=== PATIENT | male | born 1965 | race Caucasian/White ===

== ENCOUNTER 2018-07-26 13:44 | Inpatient (IN) ==
[2018-07-26] MEDS ORDERED: Morphine Inj 4 MG/ML Vial IV.PUSH ONE ×2 (14:19→15:16)
[2018-07-26] MEDS ORDERED: Aluminum/Magnesium/Simethacone Susp 30 ML UDC PO ONE (14:21)
[2018-07-26] MEDS ORDERED: Famotidine 20 MG Tablet PO ONE (14:21)
--- NOTE | 2018-07-26 15:01 | ED ---
HPI General Chief Complaint: Chest Pain Stated Complaint: Chest pain/dull right arm pain Time Seen by Provider: 07/26/18 14:02 Source: patient Mode of arrival: EMS Limitations: no limitations History of Present Illness HPI narrative: Patient is a 53-year-old morbidly obese male with history of hypertension presented with complaint of chest pain since yesterday. Described as burning radiating up through the center and to his neck and right upper extremity. Nothing radiating to the left extremity. No epigastric pain. He ate at [employer] last night and today he had cold cuts and some other fried food. He thought it was acid reflux and has taken Prilosec without any relief of his symptoms. MD complaint: chest pain STEMI Alert: No Onset (ago): day(s) (1) Duration: intermittent Onset: during rest Pain location: substernal Severity: severe Severity scale (1-10): 9 Quality: other (Burning) Pain radiation: none Relieving factors: nothing Exacerbating factors: eating Treatments prior to arrival chest pain: none Related Data Home Medications Medication Instructions Recorded Confirmed amlodipine 10 mg PO DAILY 07/26/18 07/26/18 benazepril 40 mg PO DAILY 07/26/18 07/26/18 metoprolol tartrate 25 mg PO BID 07/26/18 07/26/18 omeprazole magnesium [Prilosec OTC] 20 mg PO DAILY 07/26/18 07/26/18 simethicone [Gas-X Extra Strength] 125 mg PO DAILY PRN 07/26/18 07/26/18 Allergies Allergy/AdvReac Type Severity Reaction Status Date / Time Penicillins Allergy Hives Verified 07/26/18 14:14 Review of Systems ROS: all other systems reviewed are negative [facility] Medical History Medical History GERD (gastroesophageal reflux disease) (Acute) HTN (hypertension) (Acute) Vertigo (Acute) Surgical History Surgical History History of facial surgery (Acute) S/P appy (Acute) Family History Family History Other Hypertension Social History Social History Substance History: No History of Abuse Smoking Status: Never smoker How Often Do You Have a Drink Containing Alcohol: 2 to 4 times a month Recent Travel in [facility] within the Last 8 Weeks: No Recent Out of Country Travel within the Last 8 Weeks: No Immunization History Tetanus Immunization: Unsure Hx Influenza Vaccine This Season: No Exam Narrative Exam Narrative: GENERAL: Alert and oriented no distress SKIN: Focused skin assessment warm/dry. HEAD: Atraumatic. Normocephalic. EYES: Pupils equal and round. No scleral icterus. No injection or drainage. ENT: No nasal bleeding or discharge. Mucous membranes pink and moist. NECK: Trachea midline. No JVD. CARDIOVASCULAR: Regular rate and rhythm. No murmur appreciated. RESPIRATORY: No accessory muscle use. Clear to auscultation. Breath sounds equal bilaterally. GASTROINTESTINAL: Obese abdomen soft, non-tender, nondistended. Hepatic and splenic margins not palpable. MUSCULOSKELETAL: No obvious deformities. No clubbing. No cyanosis. No edema. NEUROLOGICAL: Awake and alert. No obvious cranial nerve deficits. Motor grossly within normal limits. Normal speech. PSYCHIATRIC: Appropriate mood and affect; insight and judgment normal. Course Reevaluation(s) Reevaluation #1: Patient complained about his chest pain coming back so we repeated an EKG there is no ST elevation. Labs are still pending. Blood pressure is 136 systolic. we will give Zofran and Morphine IV Time: 15:19 Reevaluation #2: Patient stated that his pain has eased off on the anterior chest area and is now about a 2 but he still has discomfort on the right upper extremity. Has a positive troponin of 0.15 will be contacted interventional cardiology for recommendations. Time: 17:21 Reevaluation #3: States he feels comfortable at this time with no pain. As per interventional cardiology recommendations to start him on nitro drip for pain and heparin drip for his NSTEMI. Time: 18:00 Consultations Consultation #1: Dr Lou Interventional Cardiology was consulted. recommends Heparin at this time and will evaluate for elective Cardiac Cath if symptoms resolve. Time: 17:48 Initial Documented Vital Signs Temperature 97.5 F L 07/26/18 13:50 Pulse Rate 87 07/26/18 13:50 Respiratory Rate 26 H 07/26/18 13:50 Blood Pressure 289/101 H 07/26/18 13:50 Pulse Oximetry 100 07/26/18 13:50 Last Documented Vital Signs Temperature 97.5 F L 07/26/18 13:50 Pulse Rate 74 07/26/18 17:00 Respiratory Rate 19 07/26/18 17:00 Blood Pressure 138/81 07/26/18 17:00 Pulse Oximetry 98 07/26/18 17:00 Critical Care Time Critical Care Time: Yes Total Critical Care Time: 30 Attestation: Aggregate critical care time was 30 minutes. Time to perform other separately billable procedures was not included in the critical care time. My time did not include minutes spent treating any other patients simultaneously or on activities that did not directly contribute to the patient's treatment. The services I provided to this patient were to treat and/or prevent clinically significant deterioration that could result in: cardiopulmonary collapse and or I provided critical care services requiring my management, as noted below: Chart data review, documentation time, medication orders and management, vital sign assessments/reviewing monitor data, ordering and reviewing lab tests, ordering and interpreting/reviewing x-rays and diagnostic studies, care of the patient and discussion of the patient with the admitting physicians. Medical Decision Making MDM Narrative Medical decision making narrative: He does have an elevated troponin of 0.15. EKG without ST elevation KS. Repeat EKG also without any changes. Discuss with interventional cardiology who recommends medical admission and management at this time. Patient was placed on heparin drip nitro drip for his pain and was admitted for further evaluation treatment in the CICU. Started the patient on heparin drip and nitro drip and was admitted to the ICU. Medical Screen Exam Complete: Yes Emergency Medical Condition: Yes Lab Data Lab results reviewed: Yes I reviewed the patient's lab results. Result diagrams: 07/26/18 14:30 07/26/18 14:30 Lab Results 07/26/18 07/26/18 07/26/18 Range/Units 14:30 14:30 14:30 WBC 6.1 (4.0-11.0) th/mm3 RBC 5.34 (4.50-5.90) mil/mm3 Hgb 16.1 (13.0-17.0) gm/dL Hct 46.6 (39.0-51.0) % MCV 87.3 (80.0-100.0) fL MCH 30.1 (27.0-34.0) pg MCHC 34.5 (32.0-36.0) % RDW 13.8 (11.6-17.2) % Plt Count 286 (150-450) th/mm3 MPV 8.0 (7.0-11.0) fL Neut % (Auto) 78.2 H (16.0-70.0) % Lymph % (Auto) 15.3 (9.0-44.0) % [place] % (Auto) 5.3 (0.0-8.0) % Eos % (Auto) 0.7 (0.0-4.0) % Baso % (Auto) 0.5 (0.0-2.0) % Neut # (Auto) 4.7 (1.8-7.7) th/mm3 Lymph # (Auto) 0.9 L (1.0-4.8) th/mm3 [place] # (Auto) 0.3 (0.0-0.9) th/mm3 Eos # (Auto) 0.0 (0.0-0.4) th/mm3 Baso # (Auto) 0.0 (0.0-0.2) th/mm3 WBC Differential . Differential Comment Auto diff final PT 10.3 (9.8-11.6) sec INR 1.0 Ratio APTT 26.4 (24.3-30.1) sec Sodium (136-145) meq/L Potassium (3.5-5.1) meq/L Chloride (98-107) meq/L Carbon Dioxide (21.0-32.0) meq/L Anion Gap (5-15) meq/L BUN (7-18) mg/dL Creatinine (0.60-1.30) mg/dL Estimated GFR (>89) mL/min Random Glucose (74-106) mg/dL Calcium (8.5-10.1) mg/dL Total Bilirubin (0.2-1.0) mg/dL AST (15-37) U/L ALT (12-78) U/L Alkaline Phosphatase (45-117) U/L Total Creatine Kinase (39-308) U/L CK-MB (CK-2) (0.5-3.6) ng/mL Troponin I (0.02-0.05) ng/mL B-Natriuretic Peptide 24 (0-100) pg/mL Total Protein (6.4-8.2) g/dL Albumin (3.4-5.0) g/dL 07/26/18 07/26/18 Range/Units 14:30 17:25 WBC (4.0-11.0) th/mm3 RBC (4.50-5.90) mil/mm3 Hgb (13.0-17.0) gm/dL Hct (39.0-51.0) % MCV (80.0-100.0) fL MCH (27.0-34.0) pg MCHC (32.0-36.0) % RDW (11.6-17.2) % Plt Count (150-450) th/mm3 MPV (7.0-11.0) fL Neut % (Auto) (16.0-70.0) % Lymph % (Auto) (9.0-44.0) % [place] % (Auto) (0.0-8.0) % Eos % (Auto) (0.0-4.0) % Baso % (Auto) (0.0-2.0) % Neut # (Auto) (1.8-7.7) th/mm3 Lymph # (Auto) (1.0-4.8) th/mm3 [place] # (Auto) (0.0-0.9) th/mm3 Eos # (Auto) (0.0-0.4) th/mm3 Baso # (Auto) (0.0-0.2) th/mm3 WBC Differential Differential Comment PT (9.8-11.6) sec INR Ratio APTT (24.3-30.1) sec Sodium 136 (136-145) meq/L Potassium 3.6 (3.5-5.1) meq/L Chloride 103 (98-107) meq/L Carbon Dioxide 22.4 (21.0-32.0) meq/L Anion Gap 11 (5-15) meq/L BUN 15 (7-18) mg/dL Creatinine 1.04 (0.60-1.30) mg/dL Estimated GFR 74 L (>89) mL/min Random Glucose 174 H (74-106) mg/dL Calcium 9.1 (8.5-10.1) mg/dL Total Bilirubin 1.2 H (0.2-1.0) mg/dL AST 23 (15-37) U/L ALT 41 (12-78) U/L Alkaline Phosphatase 82 (45-117) U/L Total Creatine Kinase 193 (39-308) U/L CK-MB (CK-2) 3.9 H (0.5-3.6) ng/mL Troponin I 0.14 H 0.20 H (0.02-0.05) ng/mL B-Natriuretic Peptide (0-100) pg/mL Total Protein 8.4 H (6.4-8.2) g/dL Albumin 4.0 (3.4-5.0) g/dL Imaging Data Radiologist's impression: Chest X-Ray 07/26/18 14:20 CONCLUSION: No acute cardiopulmonary disease. ECG Data EKG Prior to Arrival: No Attestation: I personally reviewed and interpreted this ECG as follows: Interpretation: Sinus rhythm [address]-T wave abnormalities no signs of acute ischemia on left axis LA interval 186 ms QTC 395 ms. Repeat EEG was obtained due to complaint of return of chest pain at 1517. Normal EKG sinus rhythm [address]-T wave abnormalities no signs of acute ischemia. Discharge Plan Discharge Disposition Patient Disposition: 30 Still Patient Discharge Condition Condition: Serious Discharge Details Diagnosis: Acute non-ST elevation myocardial infarction (NSTEMI) Physicians Team ED Provider: David Waters Primary Care Provider: UNKNOWN, Attending Provider: Carlton Cleveland Discharge Interventions Interventions: Vital Signs Last Done: 07/26/18 16:55 Status ED Status: Admitted Observation Patient
[2018-07-26 15:20] LABS: Baso % (Auto) 0.5 % (0.0-2.0); Eos % (Auto) 0.7 % (0.0-4.0); Hematocrit 46.6 % (39.0-51.0); Hemoglobin 16.1 gm/dL (13.0-17.0); Lymph # (Auto) 0.9 th/mm3 (1.0-4.8); Lymph % (Auto) 15.3 % (9.0-44.0); Mean Corpuscular HGB Conc 34.5 % (32.0-36.0); Mean Corpuscular Hemoglobin 30.1 pg (27.0-34.0); Mean Corpuscular Volume 87.3 fL (80.0-100.0); Mono # (Auto) 0.3 th/mm3 (0.0-0.9); Mono % (Auto) 5.3 % (0.0-8.0); Neut # (Auto) 4.7 th/mm3 (1.8-7.7); Neut % (Auto) 78.2 % (16.0-70.0); Platelet Count 286 th/mm3 (150-450); Red Blood Count 5.34 mil/mm3 (4.50-5.90); Red Cell Distribution Width 13.8 % (11.6-17.2); White Blood Count 6.1 th/mm3 (4.0-11.0)
[2018-07-26 15:23] LABS: Alanine Aminotransferase 41 U/L (12-78); Anion Gap 11 meq/L (5-15); Blood Urea Nitrogen 15 mg/dL (7-18); Calcium 9.1 mg/dL (8.5-10.1); Carbon Dioxide 22.4 meq/L (21.0-32.0); Chloride 103 meq/L (98-107); Glomerular Filtration Rate 74 mL/min (>89); Glucose,Random 174 mg/dL (74-106); Potassium 3.6 meq/L (3.5-5.1); Sodium 136 meq/L (136-145)
--- NOTE | 2018-07-26 15:32 | XR ---
EXAM DATE: 07/26/2018 2:57 PM EDT AGE/SEX: 53 years / Male INDICATIONS: Right side chest pain. CLINICAL DATA: This is the patient's initial encounter. Patient reports that signs and symptoms have been present for 1 day and indicates a pain score of 4/10. MEDICAL/SURGICAL HISTORY: None. None. COMPARISON: No prior exams available for comparison. FINDINGS: A single AP view of the chest demonstrates the lungs to be symmetrically aerated without evidence of mass, infiltrate or effusion. The cardiomediastinal contours are unremarkable. Osseous structures a re intact. CONCLUSION: No acute cardiopulmonary disease. Electronically signed by: Herb Murillo MD 07/26/2018 3:31 PM EDT
[2018-07-26 15:34] LABS: Activated Partial Thrombo Time 26.4 sec (24.3-30.1); Prothrombin Time 10.3 sec (9.8-11.6)
[2018-07-26 15:51] LABS: Alkaline Phosphatase 82 U/L (45-117); Aspartate Aminotransferase 23 U/L (15-37); Creatine Kinase 193 U/L (39-308); Total Protein 8.4 g/dL (6.4-8.2); Troponin I 0.14 ng/mL (0.02-0.05)
[2018-07-26 16:04] LABS: Creatine Kinase MB 3.9 ng/mL (0.5-3.6)
[2018-07-26] MEDS ORDERED: Heparin 10,000 UNITS/10 ML Vial (for IV use) IV.PUSH STA (17:52)
[2018-07-26] MEDS ORDERED: Nitroglycerin Drip Premix 50 MG/250 ML BOTTLE IV.CONT PRN (17:54)
[2018-07-26] MEDS ORDERED: Acetaminophen 325 MG Tablet PO PRN (18:16)
--- NOTE | 2018-07-26 18:28 | P.HP ---
History of Present Illness Primary Care Physician: UNKNOWN History of Present Illness: 53-year-old male with a history of GERD, hypertension presents to the ER following intermittent recurrent chest pain with radiation to the right shoulder and numbness in his right arm. The episodes began spontaneously last night but the chest pain portion was relieved with Prilosec. Episodes recurred later in the night and again this morning but were not relieved with Prilosec. She feels pain and burning in his xiphoid process with migration involving the chin and bilateral jaws and with pain referred to his right shoulder and numbness down his right arm. He denies having an experience like this before despite having GERD for a number of years. He denies any nausea vomiting or diarrhea he denies any fevers, denies cough. Inpatient Certification: I certify that the inpatient services were ordered in accordance with Medicare regulations governing the order. This includes certification that hospital inpatient services are reasonable and necessary and in the case of services not specified as inpatient-only under 42 CFR 419.22(n), that they are appropriately provided as inpatient services in accordance to with the 2-midnight benchmark under 43 CFR 412.3(e) Review of Systems All other systems reviewed negative except as stated in HPI PMFSH - History History Provided By: Patient - Medical History Medical History: Medical History (Last Reviewed 07/26/18 @ 15:00 by David Waters DO) GERD (gastroesophageal reflux disease) HTN (hypertension) Vertigo - Surgical History Surgical History: Surgical History (Last Reviewed 07/26/18 @ 15:00 by David Waters DO) History of facial surgery S/P appy - Family History Family History: Family History (Last Updated 07/26/18 @ 18:20 by Carlton Cleveland MD) Other Hypertension - Tobacco History Smoking Status: Never smoker - Alcohol History How Often Do You Have a Drink Containing Alcohol: 2 to 4 times a month - Substance Use History Substance History: No History of Abuse - Travel History Recent Travel in the [place] Within the Last 8 Weeks: No Recent Travel Out of the Country Within the Last 8 Weeks: No - Immunization History Tetanus Immunization: Unsure Hx Influenza Vaccine This Season: No Medications and Allergies Active Medications: Active Medications Acetaminophen (Tylenol) 650 mg PO Q4H PRN PRN Reason: Temp > 100.4 Al Hydroxide/Mg Hydroxide (Milk Of Magnesia Liq) 30 ml PO Q12H PRN PRN Reason: Mild Constipation Nitroglycerin/Dextrose (Nitroglycerin Drip Premix) 50 mg in 250 mls @ 0 mls/hr IV.CONT TITRATE PRN; Protocol PRN Reason: Per Protocol Lactated Ringer's (Lr 1000 Ml Inj) 1,000 mls @ 42 mls/hr IV.CONT .[id number] LAMONT Ondansetron HCl (Zofran Inj) 4 mg IV.PUSH Q6H PRN PRN Reason: NAUSEA OR VOMITING Pantoprazole Sodium (Protonix Inj) 40 mg IV.PUSH ONCE ONE Stop: 07/26/18 18:19 Sodium Chloride (Ns Flush) 2 ml IV.FLUSH UNSCH PRN PRN Reason: FLUSH AFTER USING IV ACCESS Last Admin: 07/26/18 14:32 Dose: 2 ml Allergies Allergy/AdvReac Type Severity Reaction Status Date / Time Penicillins Allergy Hives Verified 07/26/18 14:14 Home Medications Medication Instructions Recorded Confirmed Type amlodipine 10 mg PO DAILY 07/26/18 07/26/18 History benazepril 40 mg PO DAILY 07/26/18 07/26/18 History metoprolol tartrate 25 mg PO BID 07/26/18 07/26/18 History omeprazole magnesium [Prilosec OTC] 20 mg PO DAILY 07/26/18 07/26/18 History simethicone [Gas-X Extra Strength] 125 mg PO DAILY PRN 07/26/18 07/26/18 History Exam Vital signs: Vital Signs 07/26/18 13:50 07/26/18 13:55 07/26/18 14:30 Temperature 97.5 F L Pulse Rate 87 86 Respiratory Rate 26 H 21 Blood Pressure 289/101 H 172/98 H Pulse Oximetry 100 100 98 07/26/18 16:55 07/26/18 17:00 Temperature Pulse Rate 74 Respiratory Rate 19 19 Blood Pressure 138/81 Pulse Oximetry 98 Intake & Output 07/25/18 07/26/18 07/26/18 18:59 06:59 18:59 Weight 129.274 kg Narrative: GENERAL: AAOx3, uncomfortable, sitting up, obese SKIN: Warm and dry, no rashes. HEAD: Atraumatic. Normocephalic. EYES: Pupils equal, round, reactive to light. No scleral icterus. No injection or drainage. ENT: No nasal bleeding or discharge. Moist mucous membranes. Nonerythematous oropharynx. NECK: Trachea midline. No JVD. Thyroid size within normal limits. CARDIOVASCULAR: Regular rate and rhythm. No murmur, no gallops, no rubs. RESPIRATORY: Clear and equal to auscultation bilaterally. No crackles, no wheezes. No accessory muscle use. GASTROINTESTINAL: Abdomen soft, non-tender, negative McMurphy sign, nondistended , normal active bowel sounds. Hepatic and splenic margins not palpable. MUSCULOSKELETAL: Extremities without clubbing or cyanosis. No obvious deformities. No edema. NEUROLOGICAL: Awake and alert. No obvious cranial nerve deficits. Motor grossly within normal limits. No focal deficits. Five out of 5 muscle strength in the arms and legs. Normal speech. PSYCHIATRIC: Appropriate mood and affect; insight and judgment normal. Results - Labs CBC & Chem 7: 07/26/18 14:30 07/26/18 14:30 Labs: Laboratory Results - last 24 hr 07/26/18 07/26/18 07/26/18 14:30 14:30 14:30 WBC 6.1 RBC 5.34 Hgb 16.1 Hct 46.6 MCV 87.3 MCH 30.1 MCHC 34.5 RDW 13.8 Plt Count 286 MPV 8.0 Neut % (Auto) 78.2 H Lymph % (Auto) 15.3 Bond % (Auto) 5.3 Eos % (Auto) 0.7 Baso % (Auto) 0.5 Neut # (Auto) 4.7 Lymph # (Auto) 0.9 L Bond # (Auto) 0.3 Eos # (Auto) 0.0 Baso # (Auto) 0.0 WBC Differential . Differential Comment Auto diff final PT 10.3 INR 1.0 APTT 26.4 Sodium Potassium Chloride Carbon Dioxide Anion Gap BUN Creatinine Estimated GFR Random Glucose Calcium Total Bilirubin AST ALT Alkaline Phosphatase Total Creatine Kinase CK-MB (CK-2) Troponin I B-Natriuretic Peptide 24 Total Protein Albumin 07/26/18 07/26/18 14:30 17:25 WBC RBC Hgb Hct MCV MCH MCHC RDW Plt Count MPV Neut % (Auto) Lymph % (Auto) Bond % (Auto) Eos % (Auto) Baso % (Auto) Neut # (Auto) Lymph # (Auto) Bond # (Auto) Eos # (Auto) Baso # (Auto) WBC Differential Differential Comment PT INR APTT Sodium 136 Potassium 3.6 Chloride 103 Carbon Dioxide 22.4 Anion Gap 11 BUN 15 Creatinine 1.04 Estimated GFR 74 L Random Glucose 174 H Calcium 9.1 Total Bilirubin 1.2 H AST 23 ALT 41 Alkaline Phosphatase 82 Total Creatine Kinase 193 CK-MB (CK-2) 3.9 H Troponin I 0.14 H 0.20 H B-Natriuretic Peptide Total Protein 8.4 H Albumin 4.0 - Imaging Impressions Chest X-Ray 07/26/18 14:20 CONCLUSION: No acute cardiopulmonary disease. Caprini VTE Risk Assessment Caprini VTE Risk Assessment: Moderate/High Risk (score >= 2) Caprini Risk Assessment Model: Point Value = 1 Point Value = 2 Point Value = 3 Point Value = 5 Age 41-60 Minor surgery BMI > 25 kg/m2 Swollen legs Varicose veins or History of unexplained or recurrent spontaneous Oral contraceptives or hormone replacement Sepsis (< 1 month) Serious lung disease, including pneumonia (< 1 month) Abnormal pulmonary function Acute myocardial infarction Congestive heart failure (< 1 month) History of inflammatory bowel disease Medical patient at bed rest Age 61-74 Arthroscopic surgery Major open surgery (> 45 min) Laparoscopic surgery (> 45 min) Malignancy Confined to bed (> 72 hours) Immobilizing plaster cast Central venous access Age >= 75 History of VTE Family history of VTE Factor V Leiden Prothrombin [id number] Lupus anticoagulant Anticardiolipin antibodies Elevated serum homocysteine Heparin-induced thrombocytopenia Other congenital or acquired thrombophilia Stroke (< 1 month) Elective arthroplasty Hip, pelvis, or leg fracture Acute spinal cord injury (< 1 month) Prophylaxis Regimen: Total Risk Factor Score Risk Level Prophylaxis Regimen 0-1 Low Early ambulation 2 Moderate Order ONE of the following: *Sequential Compression Device (SCD) *Heparin 5000 units SQ BID 3-4 Higher Order ONE of the following medications: *Heparin 5000 units SQ TID *Enoxaparin/Lovenox 40 mg SQ daily (WT < 150 kg, CrCl > 30 mL/min) *Enoxaparin/Lovenox 30 mg SQ daily (WT < 150 kg, CrCl > 10-29 mL/min) *Enoxaparin/Lovenox 30 mg SQ BID (WT < 150 kg, CrCl > 30 mL/min) AND/OR *Sequential Compression Device (SCD) 5 or more Highest Order ONE of the following medications: *Heparin 5000 units SQ TID (Preferred with Epidurals) *Enoxaparin/Lovenox 40 mg SQ daily (WT < 150 kg, CrCl > 30 mL/min) *Enoxaparin/Lovenox 30 mg SQ daily (WT < 150 kg, CrCl > 10-29 mL/min) *Enoxaparin/Lovenox 30 mg SQ BID (WT < 150 kg, CrCl > 30 mL/min) AND *Sequential Compression Device (SCD) Assessment and Plan - Plan NSTEMI Patient has had 2 sets of cardiac enzymes, elevated at 0.15 and then bumped up to 0.20 Cardiology was consulted and would like word back on the second set of enzymes to determine level of urgency Patient is being placed on a heparin drip with nitro drip He will be sent to cardiac intermediate care for careful monitoring Continue on telemetry, oxygen, as needed nitro Cardiology consulted GERD Patient took multiple doses of Prilosec at home without relief, given omeprazole here without relief Gallbladder exam is unremarkable Patient has no CVA tenderness Give additional dose of IV Protonix DVT prophylaxis Heparin drip
[2018-07-26 19:06] LABS: Hemoglobin 16.6 gm/dL (13.0-17.0); Mean Corpuscular HGB Conc 34.6 % (32.0-36.0); Mean Corpuscular Volume 86.9 fL (80.0-100.0); Mean Platelet Volume 7.8 fL (7.0-11.0); Platelet Count 287 th/mm3 (150-450); Red Blood Count 5.52 mil/mm3 (4.50-5.90); Red Cell Distribution Width 13.6 % (11.6-17.2); White Blood Count 8.8 th/mm3 (4.0-11.0)
[2018-07-26] MEDS ORDERED: Pantoprazole Inj 40 MG Vial IV.PUSH ONE (20:00)
[2018-07-26 21:29] LABS: Troponin I 0.56 ng/mL (0.02-0.05)
[2018-07-26] MEDS ORDERED: Heparin Drip 25,000 UNIT/250 ML BAG IV.CONT PRN (22:30)
[2018-07-26] MEDS: Metoprolol Tartrate 25 MG Tablet PO SCH (22:40)
[2018-07-27 02:16] LABS: Thyroid Stimulating Hormone 0.696 uIU/mL (0.358-3.740)
[2018-07-27 02:18] LABS: Troponin I 3.07 ng/mL (0.02-0.05)
[2018-07-27] MEDS ORDERED: Morphine Inj 4 MG/ML Vial IV.PUSH ONE (02:20)
[2018-07-27 02:32] LABS: Creatine Kinase MB 99.8 ng/mL (0.5-3.6)
[2018-07-27 02:33] LABS: CKMB Percent 15.4 % (0.0-4.0)
[2018-07-27 06:53] LABS: Hematocrit 43.1 % (39.0-51.0); Mean Corpuscular HGB Conc 34.9 % (32.0-36.0); Mean Platelet Volume 7.8 fL (7.0-11.0); Platelet Count 292 th/mm3 (150-450); Red Blood Count 5.02 mil/mm3 (4.50-5.90); Red Cell Distribution Width 13.6 % (11.6-17.2); White Blood Count 9.6 th/mm3 (4.0-11.0)
[2018-07-27] MEDS ORDERED: Lisinopril 20 MG Tablet PO SCH (09:00)
[2018-07-27 09:39] LABS: Activated Partial Thrombo Time 41.7 sec (24.3-30.1); INR 1.1 Ratio; Prothrombin Time 10.8 sec (9.8-11.6)
[2018-07-27] MEDS: Pantoprazole Sodium 20 MG DR Tablet PO SCH (10:00)
[2018-07-27] MEDS: amLODIPine 10 MG Tablet PO SCH (10:01)
[2018-07-27] MEDS: Metoprolol Tartrate 25 MG Tablet PO SCH ×2 (10:01→21:40)
[2018-07-27] MEDS: Morphine Inj 4 MG/ML Vial IV.PUSH PRN ×2 (11:17→14:25)
--- NOTE | 2018-07-27 13:09 | P.PN ---
Subjective Interval history: Follow-up for non-STEMI. Patient is currently resting in bed. He continues to have mild chest discomfort mainly in the epigastric area. No nausea vomiting, diaphoresis. He is a scheduled for cardiac catheterization later today. Physical Exam Vital signs: Vital Signs 07/26/18 13:50 07/26/18 13:55 07/26/18 14:30 Temperature 97.5 F L Pulse Rate 87 86 Respiratory Rate 26 H 21 Blood Pressure 289/101 H 172/98 H Pulse Oximetry 100 100 98 07/26/18 16:55 07/26/18 17:00 07/26/18 19:14 Temperature Pulse Rate 74 Respiratory Rate 19 19 Blood Pressure 138/81 Pulse Oximetry 98 100 07/26/18 19:39 07/26/18 19:59 07/26/18 20:21 Temperature Pulse Rate 92 H 87 81 Respiratory Rate 20 20 Blood Pressure 177/89 H 175/88 H Pulse Oximetry 99 98 99 07/26/18 20:59 07/26/18 21:24 07/26/18 22:00 Temperature 97.9 F Pulse Rate 82 92 H 96 H Respiratory Rate 20 20 18 Blood Pressure 180/118 H 181/92 H 177/98 H Pulse Oximetry 98 98 98 07/26/18 23:00 07/26/18 23:10 07/27/18 00:00 Temperature 97.9 F Pulse Rate 86 74 Respiratory Rate 16 18 Blood Pressure 155/100 H 170/99 H Pulse Oximetry 96 07/27/18 01:00 07/27/18 02:00 07/27/18 02:45 Temperature Pulse Rate 76 78 76 Respiratory Rate Blood Pressure 169/99 H 162/95 H 157/95 H Pulse Oximetry 07/27/18 02:56 07/27/18 03:00 07/27/18 04:00 Temperature Pulse Rate 74 73 Respiratory Rate 16 16 Blood Pressure 148/88 H Pulse Oximetry 07/27/18 05:00 07/27/18 06:00 07/27/18 07:00 Temperature 98 F Pulse Rate 83 77 72 Respiratory Rate 18 Blood Pressure 152/94 H Pulse Oximetry 95 07/27/18 08:00 07/27/18 09:00 07/27/18 10:00 Temperature 97.5 F L Pulse Rate 76 78 80 Respiratory Rate 18 Blood Pressure 163/86 H Pulse Oximetry 97 07/27/18 11:00 07/27/18 12:00 Temperature 98.3 F Pulse Rate 82 78 Respiratory Rate Blood Pressure 138/82 Pulse Oximetry 96 Intake & Output 07/26/18 07/27/18 07/27/18 18:59 06:59 18:59 Intake Total 240 / 240 Output Total 900 / 900 Balance -660 / -660 Weight 129.274 kg 128.8 kg Intake: Oral 240 / 240 Output: Urine 900 / 900 Other: # Voids 2 Date of Last Bowel Movement 07/25/18 # Bowel Movements 0 Narrative: GENERAL: Alert, oriented 3, NAD. SKIN: Warm and dry. HEAD: Normocephalic. EYES: No scleral icterus. No injection or drainage. NECK: Supple, trachea midline. No JVD or lymphadenopathy. CARDIOVASCULAR: Regular rate and rhythm without murmurs, gallops, or rubs. RESPIRATORY: Breath sounds equal bilaterally. No accessory muscle use. GASTROINTESTINAL: Abdomen soft, non-tender, nondistended. MUSCULOSKELETAL: No cyanosis, or edema. BACK: Nontender without obvious deformity. No CVA tenderness. Results - Labs CBC & Chem 7: 07/27/18 05:20 07/26/18 14:30 Laboratory Results - last 24 hr 07/26/18 07/26/18 07/26/18 14:30 14:30 14:30 WBC 6.1 RBC 5.34 Hgb 16.1 Hct 46.6 MCV 87.3 MCH 30.1 MCHC 34.5 RDW 13.8 Plt Count 286 MPV 8.0 Neut % (Auto) 78.2 H Lymph % (Auto) 15.3 [place] % (Auto) 5.3 Eos % (Auto) 0.7 Baso % (Auto) 0.5 Neut # (Auto) 4.7 Lymph # (Auto) 0.9 L [place] # (Auto) 0.3 Eos # (Auto) 0.0 Baso # (Auto) 0.0 WBC Differential . Differential Comment Auto diff final PT 10.3 INR 1.0 APTT 26.4 Sodium Potassium Chloride Carbon Dioxide Anion Gap BUN Creatinine Estimated GFR Random Glucose Calcium Total Bilirubin AST ALT Alkaline Phosphatase Total Creatine Kinase CK-MB (CK-2) CK-MB (CK-2) % Troponin I B-Natriuretic Peptide 24 Total Protein Albumin Lipase TSH 07/26/18 07/26/18 07/26/18 14:30 17:25 18:45 WBC 8.8 RBC 5.52 Hgb 16.6 Hct 48.0 MCV 86.9 MCH 30.0 MCHC 34.6 RDW 13.6 Plt Count 287 MPV 7.8 Neut % (Auto) Lymph % (Auto) [place] % (Auto) Eos % (Auto) Baso % (Auto) Neut # (Auto) Lymph # (Auto) [place] # (Auto) Eos # (Auto) Baso # (Auto) WBC Differential Differential Comment PT INR APTT Sodium 136 Potassium 3.6 Chloride 103 Carbon Dioxide 22.4 Anion Gap 11 BUN 15 Creatinine 1.04 Estimated GFR 74 L Random Glucose 174 H Calcium 9.1 Total Bilirubin 1.2 H AST 23 ALT 41 Alkaline Phosphatase 82 Total Creatine Kinase 193 CK-MB (CK-2) 3.9 H CK-MB (CK-2) % Troponin I 0.14 H 0.20 H B-Natriuretic Peptide Total Protein 8.4 H Albumin 4.0 Lipase TSH 07/26/18 07/26/18 07/27/18 20:14 23:05 01:14 WBC RBC Hgb Hct MCV MCH MCHC RDW Plt Count MPV Neut % (Auto) Lymph % (Auto) [place] % (Auto) Eos % (Auto) Baso % (Auto) Neut # (Auto) Lymph # (Auto) [place] # (Auto) Eos # (Auto) Baso # (Auto) WBC Differential Differential Comment PT INR APTT 25.6 Sodium Potassium Chloride Carbon Dioxide Anion Gap BUN Creatinine Estimated GFR Random Glucose Calcium Total Bilirubin AST ALT Alkaline Phosphatase Total Creatine Kinase 256 646 H CK-MB (CK-2) 99.8 H CK-MB (CK-2) % 15.4 H* Troponin I 0.56 H 3.07 H* B-Natriuretic Peptide Total Protein Albumin Lipase 93 TSH 0.696 07/27/18 07/27/18 07/27/18 05:20 05:20 09:15 WBC 9.6 RBC 5.02 Hgb 15.0 Hct 43.1 MCV 86.0 MCH 30.0 MCHC 34.9 RDW 13.6 Plt Count 292 MPV 7.8 Neut % (Auto) Lymph % (Auto) [place] % (Auto) Eos % (Auto) Baso % (Auto) Neut # (Auto) Lymph # (Auto) [place] # (Auto) Eos # (Auto) Baso # (Auto) WBC Differential Differential Comment PT 10.8 INR 1.1 APTT 29.1 41.7 H D Sodium Potassium Chloride Carbon Dioxide Anion Gap BUN Creatinine Estimated GFR Random Glucose Calcium Total Bilirubin AST ALT Alkaline Phosphatase Total Creatine Kinase CK-MB (CK-2) CK-MB (CK-2) % Troponin I B-Natriuretic Peptide Total Protein Albumin Lipase TSH - Imaging Impressions Chest X-Ray 07/26/18 14:20 CONCLUSION: No acute cardiopulmonary disease. Assessment and Plan - Plan Mr. Kramer is a 53-year-old male with a history of GERD, hypertension presented to the ER on 07/26/2018 following intermittent recurrent chest pain with radiation to the right shoulder and numbness in his right arm. Troponins gradually increased from 0.14 on admission to 3.0 7 in the morning on 07/27/2018. Non-ST segment elevation myocardial infarction -Patient is currently on heparin drip as well as nitroglycerin drip. -Continue metoprolol 25 mg p.o. twice daily -Aspirin 81 mg daily -We will give him atorvastatin 80 mg now. We can likely continue atorvastatin 40 mg nightly. -Cardiology on board - cath later today. Hypertension GERD Continue PPI. Continue amlodipine 10 mg daily, lisinopril 40 mg daily Full code. Heparin drip.
[2018-07-27] MEDS ORDERED: Heparin 10,000 UNITS/10 ML Vial (for IV use) IV.PUSH PRN ×2 (13:18→13:20)
--- NOTE | 2018-07-27 13:55 | P.CONCA ---
History of Present Illness Service: Cardiology Consult date: 07/27/18 Requesting Physician: Carlton Cleveland Reason for Consult: Chest pain Primary Care Provider: UNKNOWN History of Present Illness: This is a 53-year-old male with a history of GERD and hypertension. He presented to the emergency department with complaints of recurrent midsternal chest pain that radiated up into the right shoulder and down the arm and up into the jaw. States that the pain started on Wednesday around noon after eating lunch and he thought it was probably acid reflux so he took Prilosec and Gas-X. Initially, the pain was relieved but reoccurred later on that night and again this morning, which was not relieved with Prilosec. Pain gradually increased throughout the morning and he decided to seek treatment in the emergency department. He is complaining of midsternal chest pain 4 out of 10 with no radiation. He denies any shortness of breath, dizziness, palpitations or edema. Currently, he is on IV Nitro and Heparin. Review of Systems All other systems reviewed negative except as stated in HPI PMFSH - History History Provided By: Patient - Medical History Medical History: Medical History (Last Reviewed 07/26/18 @ 15:00 by David Waters DO) GERD (gastroesophageal reflux disease) HTN (hypertension) Vertigo - Surgical History Surgical History: Surgical History (Last Reviewed 07/26/18 @ 15:00 by David Waters DO) History of facial surgery S/P appy - Family History Family History: Family History (Last Updated 07/26/18 @ 18:20 by Carlton Cleveland MD) Other Hypertension - Tobacco History Second Hand Smoke Exposure: No Smoking Status: Never smoker - Alcohol History How Often Do You Have a Drink Containing Alcohol: 2 to 4 times a month - Substance Use History Substance History: No History of Abuse - Travel History Recent Travel in the [place] Within the Last 8 Weeks: No Recent Travel Out of the Country Within the Last 8 Weeks: No - Immunization History Tetanus Immunization: Unsure Hx Influenza Vaccine This Season: No Medications and Allergies Allergies Allergy/AdvReac Type Severity Reaction Status Date / Time Penicillins Allergy Hives Verified 07/26/18 14:14 Home Medications Medication Instructions Recorded Confirmed Type amlodipine 10 mg PO DAILY 07/26/18 07/26/18 History benazepril 40 mg PO DAILY 07/26/18 07/26/18 History metoprolol tartrate 25 mg PO BID 07/26/18 07/26/18 History omeprazole magnesium [Prilosec OTC] 20 mg PO DAILY 07/26/18 07/26/18 History simethicone [Gas-X Extra Strength] 125 mg PO DAILY PRN 07/26/18 07/26/18 History Active Medications: Active Medications Acetaminophen (Tylenol) 650 mg PO Q4H PRN PRN Reason: Temp > 100.4 Last Admin: 07/26/18 22:35 Dose: 650 mg Al Hydroxide/Mg Hydroxide (Milk Of Magndariela Liq) 30 ml PO Q12H PRN PRN Reason: Mild Constipation Amlodipine Besylate (Norvasc) 10 mg PO DAILY [facility] Last Admin: 07/27/18 10:01 Dose: 10 mg Aspirin (Aspirin Chew) 81 mg PO DAILY [facility] Last Admin: 07/27/18 10:00 Dose: 81 mg Atorvastatin Calcium (Lipitor) 40 mg PO HS [facility] Heparin Sodium (Porcine) (Heparin Inj) 2,500 units IV.PUSH UNSCH PRN PRN Reason: aPTT 25-39 Last Admin: 07/27/18 07:44 Dose: 2,500 units Heparin Sodium (Porcine) (Heparin Inj) 5,000 units IV.PUSH UNSCH PRN PRN Reason: aPTT < 25 Nitroglycerin/Dextrose (Nitroglycerin Drip Premix) 50 mg in 250 mls @ 0 mls/hr IV.CONT TITRATE PRN; Protocol PRN Reason: Per Protocol Last Titration: 07/27/18 00:45 Dose: 30 mcg/min, 9 mls/hr Heparin Sodium/Dextrose (Heparin/D5w 25,000 U/250 Ml) 25,000 unit in 250 mls @ 10 mls/hr IV.CONT TITRATE PRN; Protocol PRN Reason: Per Protocol Last Titration: 07/27/18 07:44 Dose: 1,100 units/hr, 11 mls/hr Lisinopril (Prinivil) 40 mg PO DAILY [facility] Last Admin: 07/27/18 10:00 Dose: 40 mg Metoprolol Tartrate (Lopressor) 25 mg PO BID [facility] Last Admin: 07/27/18 10:01 Dose: 25 mg Morphine Sulfate (Morphine Inj) 2 mg IV.PUSH Q3H PRN PRN Reason: Pain > 4 Last Admin: 07/27/18 11:17 Dose: 2 mg Ondansetron HCl (Zofran Inj) 4 mg IV.PUSH Q6H PRN PRN Reason: NAUSEA OR VOMITING Pantoprazole Sodium (Protonix) 20 mg PO DAILY [place] Last Admin: 07/27/18 10:00 Dose: 20 mg Sodium Chloride (Ns Flush) 2 ml IV.FLUSH UNSCH PRN PRN Reason: FLUSH AFTER USING IV ACCESS Last Admin: 07/26/18 14:32 Dose: 2 ml Exam Vital signs: Vital Signs 07/26/18 13:50 07/26/18 13:55 07/26/18 14:30 Temperature 97.5 F L Pulse Rate 87 86 Respiratory Rate 26 H 21 Blood Pressure 289/101 H 172/98 H Pulse Oximetry 100 100 98 07/26/18 16:55 07/26/18 17:00 07/26/18 19:14 Temperature Pulse Rate 74 Respiratory Rate 19 19 Blood Pressure 138/81 Pulse Oximetry 98 100 07/26/18 19:39 07/26/18 19:59 07/26/18 20:21 Temperature Pulse Rate 92 H 87 81 Respiratory Rate 20 20 Blood Pressure 177/89 H 175/88 H Pulse Oximetry 99 98 99 07/26/18 20:59 07/26/18 21:24 07/26/18 22:00 Temperature 97.9 F Pulse Rate 82 92 H 96 H Respiratory Rate 20 20 18 Blood Pressure 180/118 H 181/92 H 177/98 H Pulse Oximetry 98 98 98 07/26/18 23:00 07/26/18 23:10 07/27/18 00:00 Temperature 97.9 F Pulse Rate 86 74 Respiratory Rate 16 18 Blood Pressure 155/100 H 170/99 H Pulse Oximetry 96 07/27/18 01:00 07/27/18 02:00 07/27/18 02:45 Temperature Pulse Rate 76 78 76 Respiratory Rate Blood Pressure 169/99 H 162/95 H 157/95 H Pulse Oximetry 07/27/18 02:56 07/27/18 03:00 07/27/18 04:00 Temperature Pulse Rate 74 73 Respiratory Rate 16 16 Blood Pressure 148/88 H Pulse Oximetry 07/27/18 05:00 07/27/18 06:00 09/19/18 07:00 Temperature 98 F Pulse Rate 83 77 72 Respiratory Rate 18 Blood Pressure 152/94 H Pulse Oximetry 95 07/27/18 08:00 07/27/18 09:00 07/27/18 10:00 Temperature 97.5 F L Pulse Rate 76 78 80 Respiratory Rate 18 Blood Pressure 163/86 H Pulse Oximetry 97 07/27/18 11:00 07/27/18 12:00 Temperature 98.3 F Pulse Rate 82 78 Respiratory Rate Blood Pressure 138/82 Pulse Oximetry 96 Intake & Output 07/26/18 07/27/18 07/27/18 18:59 06:59 18:59 Intake Total 240 / 240 Output Total 900 / 900 Balance -660 / -660 Weight 129.274 kg 128.8 kg Intake: Oral 240 / 240 Output: Urine 900 / 900 Other: # Voids 2 Date of Last Bowel Movement 07/25/18 # Bowel Movements 0 - Constitutional no acute distress - Routine HEENT Exam Head: Present: normocephalic Eye: Present: PERRL ENT: Present: mucous membranes moist - Routine Neck Exam Present: full ROM - Routine Respiratory Exam Present: CTA bilaterally - Routine Cardiovascular Exam Present: S1, S2. Absent: murmur, gallop, rubs - Routine Abdominal Exam Present: normoactive bowel sounds - Routine Extremities Exam Present: full ROM, pulses intact, normal capillary refill. Absent: cyanosis, clubbing, edema - Routine Skin Exam Present: intact - Routine Neurological Exam Present: oriented X3 Results 07/27/18 05:20 07/26/18 14:30 Cardiac Enzymes 07/26/18 07/26/18 07/26/18 Range/Units 14:30 14:30 17:25 AST 23 (15-37) U/L CK-MB (CK-2) 3.9 H (0.5-3.6) ng/mL Troponin I 0.14 H 0.20 H (0.02-0.05) ng/mL B-Natriuretic Peptide 24 (0-100) pg/mL 07/26/18 07/27/18 Range/Units 20:14 01:14 AST (15-37) U/L CK-MB (CK-2) 99.8 H (0.5-3.6) ng/mL Troponin I 0.56 H 3.07 H* (0.02-0.05) ng/mL B-Natriuretic Peptide (0-100) pg/mL Coagulation 07/26/18 07/26/18 07/26/18 Range/Units 14:30 14:30 23:05 PT 10.3 (9.8-11.6) sec APTT 26.4 25.6 (24.3-30.1) sec B-Natriuretic Peptide 24 (0-100) pg/mL 07/27/18 07/27/18 Range/Units 05:20 09:15 PT 10.8 (9.8-11.6) sec APTT 29.1 41.7 H D (24.3-30.1) sec B-Natriuretic Peptide (0-100) pg/mL CBC 07/26/18 07/26/18 07/27/18 Range/Units 14:30 18:45 05:20 WBC 6.1 8.8 9.6 (4.0-11.0) th/mm3 RBC 5.34 5.52 5.02 (4.50-5.90) mil/mm3 Hgb 16.1 16.6 15.0 (13.0-17.0) gm/dL Hct 46.6 48.0 43.1 (39.0-51.0) % Plt Count 286 287 292 (150-450) th/mm3 Neut # (Auto) 4.7 (1.8-7.7) th/mm3 Lymph # (Auto) 0.9 L (1.0-4.8) th/mm3 [place] # (Auto) 0.3 (0.0-0.9) th/mm3 Eos # (Auto) 0.0 (0.0-0.4) th/mm3 Baso # (Auto) 0.0 (0.0-0.2) th/mm3 Comprehensive Metabolic Panel 07/26/18 Range/Units 14:30 Sodium 136 (136-145) meq/L Potassium 3.6 (3.5-5.1) meq/L Chloride 103 (98-107) meq/L Carbon Dioxide 22.4 (21.0-32.0) meq/L BUN 15 (7-18) mg/dL Creatinine 1.04 (0.60-1.30) mg/dL Calcium 9.1 (8.5-10.1) mg/dL AST 23 (15-37) U/L ALT 41 (12-78) U/L Alkaline Phosphatase 82 (45-117) U/L Total Protein 8.4 H (6.4-8.2) g/dL Albumin 4.0 (3.4-5.0) g/dL Intake and Output 07/26/18 07/27/18 07/27/18 22:59 06:59 14:59 Intake Total 240 / 240 Output Total 600 / 600 300 / 300 Balance -600 / -600 -60 / -60 Intake: Oral 240 / 240 Output: Urine 600 / 600 300 / 300 Other: # Voids 2 Date of Last Bowel Movement 07/25/18 # Bowel Movements 0 Weight 128.8 kg Assessment and Plan - Assessment (1) Morbid obesity Code(s): E66.01 - Morbid (severe) obesity due to excess calories Status: Acute (2) Hypertension Code(s): I10 - Essential (primary) hypertension Status: Acute - Plan Patient continues to have chest pain not relieved by nitro drip. Titrate nitro drip to relieve chest pain, keep systolic blood pressure greater than 100. Troponin levels are trending up we will schedule patient for cardiac catheterization this afternoon. He is currently on a beta-anastasiia and aspirin. Continue to keep patient n.p.o. Consent signed for cardiac catheterization with possible coronary intervention. Discussed with patient the cardiac catheterization risk factors which include but are not limited to bleeding or infection at the insertion site, damage to the artery at insertion site, allergic reaction, kidney injury, stroke, heart attack or . We will follow patient during hospitalization. Patient was seen and evaluated by Dr. Chaparro who participated in care, management and decision-making. - Attending Attestation Patient seen and examined. I reviewed and agree with the evaluation and plan as presented. Presentation c/w NSTEMI. Proceed with cath and possible PCI.
[2018-07-27] MEDS ORDERED: fentaNYL Citrate Inj 100 MCG/2 ML Ampul ONE ×2 (14:43→15:53)
[2018-07-27] MEDS ORDERED: Heparin 10,000 UNITS/10 ML Vial (for IV use) ONE (14:43)
[2018-07-27] MEDS ORDERED: Heparin/NS PF Inj 1,500 ML ONE (14:43)
[2018-07-27] MEDS ORDERED: Cangrelor Inj 50,000 MCG Vial ONE (15:44)
--- NOTE | 2018-07-27 16:35 | CATHPROC ---
[employer] HIS Report Study Information Study Number Admission Scheduled Start Study Start [id number] Jul 26 2018 6:16PM 07/27/2018 Jul 27 2018 2:11PM [place] Service Cardiac Pacer/ICD Admit Source Facility Department Other [facility] - [facility] Physician and Clinical Staff Initial Gerardo Tellez Level Glass Vial Filler Cindy Bush,DAFNE Recorder Christina Bajwa ,RT(R) Scrub Pallavi Carrington,RT(R) Procedures Performed Procedure Location (Site) Vessel Name Angiogram LV LV Ventricle Coronary Angiograms LCA Left Coronary Coronary Angiograms RCA Right Coronary Drug Eluting Inflatio CIRC Mid CIRC Drug Eluting Inflatio LAD Mid Left Coronary L Heart Cath PTCA CIRC Mid CIRC PTCA LAD Mid Left Coronary Wire insertion Fem Art (right) Femoral Art Equipment Time Customer Success Specialist Description Size Mfg Part Number Used/Scraped WIRE, BALANCE MIDDLEWEIGHT [id number] 15:28 [employer] 190CM Used 190CM *[id number] TRANSDUCER, TRUWAVE [id number] 14:13 GODINEZ NAVA * Used W/STOCKCOCK *[id number] [id number] *[id number] 534-520T *[id number] [id number] *[id number] *[id number] 16:16 [employer]IG[employer] ANGIOSEAL, FR6 VIP FR 6 Used *[id number] 14:13 [employer] BLANKET,WARM AIR CCL * Used *[id number] 14:13 [employer] PACK, CCL CUSTOM * Used *[id number] 14:13 Mir[employer] PACER PEN, SKIN DUAL W/ RULER * Used *[id number] 15:33 MED[employer] BALLOON, 2.0 X 10MM EUPHORA 10MM Used *[id number] BALLOON, 2.75 X 8MM NC [id number] 16:01 MEDTRONIC 8MM Used EUPHORA *[id number] 15:42 MED[employer] STENT, 2.5 38MM ROSE MARIE 2.5 38MM [id number] 15:54 [employer] STENT, 2.75 12MM ROSE MARIE 2.75 12MM Used *[id number] 15:29 [employer] MEDICAL 30 KAITLYN INDEFLATOR Used *[id number] 15:28 [employer] MEDICAL SHEATH, FR6.5 PRELUDE 11CM FR 6.5 038ACT Used *[id number] 14:13 [employer] MEDICAL WIRE, 3MMJ .035 180CM 180CM Used *[id number] PROBE COVER, STERILE [id number] 14:13 [employer] MEDICAL * Used ULTRASOUND W/ GEL *[id number] 14:13 NAMIC MANIFOLD, 4 PORT * Used *[id number] 14:13 NAMIC TUBING, HIGH PRESSURE 48" 48" Used *[id number] 14:13 [employer]COM[employer] OMNIPAQUE, 350 MG, 150ML 150ML [id number] Used [id number] 14:13 TERUMO MEDICAL SHEATH, FR5 TERUMO (10CM) FR 5 Used *[id number] Equipment Model, Serial, Lot Number and Expiration Data Description Model Number Serial Number Lot Number Expiration Date ANGIOSEAL, FR6 VIP [id number] 03-07-2019 STENT, 2.5 38MM ROSE MARIE [id number] 02-06-2020 STENT, 2.75 12MM ROSE MARIE [id number] 02-22-2020 History: Current Medications Medication Dosage/Unit Route Frequency Last Date/Time Taken ASA NORVASC LISINOPRIL LIPITOR LOPRESSOR History: Allergies Allergy Reaction Penicillins Hives History: Risk Factors Family History of Hypertension Dyslipidemia Previous NE Previous Heart Failure Premature CAD Yes Yes No No No Prior Valve Prior PCI Prior CABG Surgery No No No Cerebrovascular Peripheral Artery Chronic Lung On Dialysis Diabetes Disease Disease Disease No No No Yes No History: Stress Tests Stress or Imaging Studies Performed No History: Other Current Smoker No Labs Hgb (g/dl) Hct (%) WBC (l/cumm) Platelets (thousands) 11.60-17.00 35.00-51.00 4.00-11.00 150.00-450.00 15.0 43.1 9.6 292 Glucose (mg/dl) BUN (mg/dl) Creatinine (mg/dl) BUN:Creatinine (1:x) 74.00-106.00 7.00-18.00 0.50-1.30 10.00-20.00 174 15 1.0 15 Na (meq/l) K (meq/l) 136.00-145.00 3.50-5.10 136 3.6 INR (PTT:PT) 0.90-1.10 1.1 Troponin I (ng/ml) CPK (u/l) CPK-MB (ng/ML) 0.02-0.05 26.00-308.00 0.50-3.60 3.07 99.8 15.4 Medication Medication Total Dose (Bolus/Oral) Medication Total Dosage/Unit 1% XYLOCAINE 20 mL BRILLINTA 180 mg FENTANYL 150 mcg HEPARIN 98981 units NTG (IC) 600 mcg VERSED 5 mg Medications (Bolus/Oral) Medication Time Given Dosage/Unit Administered By Reason VERSED 07/27/2018 2:45:00 PM 2 mg Shankar, Iqrakar 2 mg VERSED given in lab by Gerardo Chaparro in Left Antecubital via Peripheral IV. Ordered by Gerardo Chaparro. FENTANYL 07/27/2018 2:46:03 PM 50 mcg Gerardo Chaparro 50 mcg FENTANYL given in lab by Gerardo Chaparro via Peripheral IV. Ordered by Gerardo Chaparro. VERSED 07/27/2018 3:09:00 PM 1 mg Shankar, Gerardo 1 mg VERSED given in lab by Gerardo Chaparro in Left Antecubital via Peripheral IV. Ordered by Gerardo Chaparro. 1% XYLOCAINE 07/27/2018 3:16:20 PM 20 mL Gerardo Chaparro 20 mL 1% XYLOCAINE given in lab by Gerardo Chaparro via Subcutaneous. Ordered by Gerardo Chaparro. FENTANYL 07/27/2018 3:17:00 PM 25 mcg Gerardo Chaparro 25 mcg FENTANYL given in lab by Gerardo Chaparro via Peripheral IV. Ordered by Gerardo Chaparro. HEPARIN 07/27/2018 3:29:56 PM 9000 units Cindy Bush 9000 units HEPARIN given in lab by Cindy Bush RN via Peripheral IV. Ordered by Gerardo Chaparro. FENTANYL 07/27/2018 3:31:34 PM 25 mcg Cindy Bush 25 mcg FENTANYL given in lab by Cindy Bush RN in Left Antecubital via Peripheral IV. Ordered by Gerardo Chaparro. NTG (IC) 07/27/2018 3:36:21 PM 200 mcg Gerardo Chaparro 200 mcg NTG (IC) given in lab by Gerardo Chaparro via Intra-coronary. Ordered by Gerardo Chaparro. NTG (IC) 07/27/2018 3:39:32 PM 200 mcg Gerardo Chaparro 200 mcg NTG (IC) given in lab by Gerardo Chaparro via Intra-coronary. Ordered by Gerardo Chaparro. HEPARIN 07/27/2018 3:50:14 PM 2000 units Cindy Bush 2000 units HEPARIN given in lab by Cindy Bush, DAFNE via Peripheral IV. Ordered by Gerardo Chaparro. VERSED 07/27/2018 3:52:23 PM 2 mg Cindy Bush 2 mg VERSED given in lab by Cindy Bush RN via Peripheral IV. Ordered by Gerardo Chaparro. FENTANYL 07/27/2018 3:55:29 PM 50 mcg Cindy Bush 50 mcg FENTANYL given in lab by Cindy Bush RN via Peripheral IV. Ordered by Gerardo Chaparro. NTG (IC) 07/27/2018 3:57:58 PM 200 mcg Gerardo Chaparro 200 mcg NTG (IC) given in lab by Gerardo Chaparro via Intra-coronary. Ordered by Gerardo Chaparro. BRILLINTA 07/27/2018 4:20:38 PM 180 mg Cindy Bush 180 mg BRILLINTA given in lab by iCndy Bush RN in Per mouth via Oral. Ordered by Mario Alberto Chaparro Medication (Drip) Medication Time Given Dosage/Unit Concentration/Unit Diluent (ml) Solution HEPARIN DRIP 07/27/2018 2:35:34 PM 1100 units/hr 71095 units 250 D5W Patient arrived on 1100 units/hr HEPARIN DRIP in Right Antecubital via Peripheral IV. Pump/Drip Flow = 11 ml/hr using [place] [address] units in 250 ml. HEPARIN DRIP 07/27/2018 3:16:40 PM 1100 units/hr 15007 units 250 D5W Patient arrived on 1100 units/hr HEPARIN DRIP in Right Antecubital via Peripheral IV. Pump/Drip Flow = 11 ml/hr [place] [address] units in 250 ml. Discontinued at 07/27/2018 15:16. IV Solutions 07/27/2018 2:35:33 PM 50 mL (IV) NaCl .9 Patient arrived on IV Solutions in Left Antecubital via Peripheral IV. Pump/Drip Flow using NaCl .9. KENGREAL BOLUS 07/27/2018 4:18:20 PM 19 mL 19 mL KENGREAL BOLUS given in lab by Cindy Bush, DAFNE via Peripheral IV. Ordered by Mario Alberto Chaparro KENGREAL DRIP 07/27/2018 4:24:15 PM 3.992 mcg/kg/min 50 mg 250 NaCl .9 3.992 mcg/kg/min KENGREAL DRIP given in lab by Cindy Bush, DAFNE via Peripheral IV. Pump/Drip Flow = 154 ml/hr using NaCl .9 with a concentration of 50 mg in 250 ml. Ordered by Gerardo Chaparro. NITROGLYCERIN DRIP 07/27/2018 2:35:34 PM 50 mcg/min 50 mg 250 D5W Patient arrived on 50 mcg/min NITROGLYCERIN DRIP in Left Antecubital via Peripheral IV. Pump/Drip Mike w = 15 ml/hr using D5W with a concentration of 50 mg in 250 ml. NITROGLYCERIN DRIP 07/27/2018 4:02:53 PM 50 mcg/min 50 mg 250 D5W Patient arrived on 50 mcg/min NITROGLYCERIN DRIP in Left Antecubital via Peripheral IV. Pump/Drip Mike w = 15 ml/hr using D5W with a concentration of 50 mg in 250 ml. Discontinued at 07/27/2018 16:02. Initial Case Assessment Cardiovascular HR NIBP Chest Pain 84 134/87 2 Edema Present Skin color Skin Mild Normal Warm Dry Circulatory - Right Pulses Dorsalis Pedis Femoral 2 2 Scale (0,1,2,3,4,d) Circulatory - Left Pulses Dorsalis Pedis Femoral 2 2 Scale (0,1,2,3,4,d) Circulatory - Lower Extremities Color Lower Right Color Lower Left Normal Normal Neurological State Oriented to time-place- Alert Moves all extremities person Respiration - General Respiration Rate SpO2 (%) O2 (lpm) (B/min) 20 95 2 Initial Case Assessment Cardiovascular HR NIBP Chest Pain 104 141/104 2 Edema Present Skin color Skin None Normal Warm Dry Circulatory - Right Pulses Dorsalis Pedis Femoral 2 2 Scale (0,1,2,3,4,d) Circulatory - Left Pulses Dorsalis Pedis Femoral 2 2 Scale (0,1,2,3,4,d) Circulatory - Lower Extremities Color Lower Right Color Lower Left Normal Normal Neurological State Oriented to time-place- Alert Moves all extremities person Respiration - General Respiration Rate SpO2 (%) O2 (lpm) (B/min) 16 95 2 Chronological Log Time Study Chronological Log 14:35:19 Patient arrived via Bed. 14:35:20 Patient Name, D.O.B, / Armband Verified By R.N. 14:35:21 Consent signed by the physician and the patient and verified by the [facility] staff. 14:35:22 Pre-op and post- op instructions given; patient acknowledges understanding of instructions. 14:35:22 Verbal Stimulation=2 Physical Stimulation=2 Airway=2 Respiration=2 TOTAL=8. (0=absent, 1=li mited, 2=present) 14:35:25 Patient has been NPO for More than 6Hrs. 14:35:27 Skin Breakdown- none per patient 14:35:30 Patient Warmer Placed on the Table. 14:35:31 Ted Prominences Protected 14:35:31 A # 20 IV was noted in the Antecubital (right). Grade = 0 14:35:32 A # 20 IV was noted in the Antecubital (left). Grade = 0 14:35:33 Patient arrived on IV Solutions in Left Antecubital via Peripheral IV. Pump/Drip Flow using NaCl .9. Patient arrived on 50 mcg/min NITROGLYCERIN DRIP in Left Antecubital via Peripheral IV. Pump/Dr ip Flow = 15 ml/hr 14:35:34 using D5W with a concentration of 50 mg in 250 ml. Patient arrived on 1100 units/hr HEPARIN DRIP in Right Antecubital via Peripheral IV. Pump/Drip Flow = 11 ml/hr using 14:35:34 [place] [address] units in 250 ml. 14:35:35 History and physical on the chart or being dictated. Assessment: Initial Case, HR=84 BPM, ZMKK=401/87 mmhg, Chest Pain=2, Edema=Mild, Color=Normal, Skin = Warm, Dry Right Pulses: Lance Ped=2, Femoral=2 Left Pulses: Lance Ped=2, Femoral=2 14:35:36 Lower Right Extremities: Color=Normal Lower Left Extremities: Color=Normal Neurological: State=Alert, Ox3, NEWBERRY Respiration: Resp=20 B/min, SpO2=95 %, O2=2 lpm Vitals capture started with the following parameters, Patient=Adult, Interval=5 min, Initial Pr fvgvtw=172 mmHg, 14:39:19 Deflation Rate=5 mmHg, Cuff placed on Left Arm 14:39:52 HR=84 bpm, CLZA=929/87 mmhg, SpO2=94.0 %, Resp=20 B/min 14:41:06 Bilateral groins prepped with 2% chlorhexidine, and draped after a 3 minute waiting time. 14:41:18 Reference ECG taken 14:44:55 HR=89 bpm, LMZH=308/79 mmhg, SpO2=98.0 %, Resp=12 B/min 14:45:00 2 mg VERSED given in lab by Gerardo Chaparro in Left Antecubital via Peripheral IV. Ordered by Gerardo Chaparro. 14:45:52 Pressure channel 1 zeroed. 14:46:03 50 mcg FENTANYL given in lab by Gerardo Chaparro via Peripheral IV. Ordered by Sulma Chaparro ar. 14:46:58 paged 14:49:54 HR=77 bpm, GFKV=024/74 mmhg, SpO2=94.0 %, Resp=14 B/min 14:54:54 HR=78 bpm, MKDI=884/73 mmhg, SpO2=94.0 %, Resp=14 B/min 14:59:53 HR=79 bpm, SSIH=861/71 mmhg, SpO2=92.0 %, Resp=13 B/min 15:04:54 HR=76 bpm, GEWH=945/68 mmhg, SpO2=95.0 %, Resp=15 B/min 15:06:41 MD arrived. 15:09:00 1 mg VERSED given in lab by Gerardo Chaparro in Left Antecubital via Peripheral IV. Ordered by Gerardo Chaparro. 15:09:55 HR=91 bpm, FBMN=459/69 mmhg, SpO2=95.0 %, Resp=14 B/min 15:14:56 HR=81 bpm, LXMD=506/70 mmhg, SpO2=95.0 %, Resp=13 B/min Time Out. Correct patient, correct procedure, correct physician, labs, allergies, and equipment verified with laborer pullet farm 15:15:55 team present. Fire risk assesment completed (see hard stop sheet for coding). Time Out Conc urred by and individual staff in procedure. 15:16:16 Case Start 15:16:20 20 mL 1% XYLOCAINE given in lab by Gerardo Chaparro via Subcutaneous. Ordered by Jorge Chaparro. Patient arrived on 1100 units/hr HEPARIN DRIP in Right Antecubital via Peripheral IV. Pump/Drip Flow = 11 ml/hr using 15:16:40 D[place] [address] units in 250 ml. Discontinued at 07/27/2018 15:16. 15:17:00 25 mcg FENTANYL given in lab by Gerardo Chaparro via Peripheral IV. Ordered by Sulma Chaparro ar. 15:17:14 Access site was Right Femoral Artery. 15:17:29 A SHEATH, FR5 TERUMO (10CM) FR 5 was advanced into the Fem Art (right) using the Percutaneo us technique. A PIGTAIL ANG. INFINITI CATHETER FR 5 was advanced over a wire. OMNIPAQUE, 350 MG, 150ML 150ML was used 15:18:02 for injections. Recorded Pressure: LV, HR=52, Condition=Condition 1 15:18:40 (Left Ventricle) LV 116/18/16 15:19:10 The LV was injected at 10 cc/sec for a total of 30. OMNIPAQUE, 350 MG, 150ML 150ML used. 15:19:59 HR=87 bpm, XRLX=971/64 mmhg, SpO2=95.0 %, Resp=11 B/min 15:20:17 Activated Clotting Time Drawn Recorded Pressure: LV, Ao, HR=85, Condition=Condition 1 15:20:34 (Left Ventricle) LV 114/13/16, (Aorta) Ao 108/73/89 After removing the current catheter a JL 4.0 INFINITI CATHETER FR 5 was advanced over a WIRE, 3 MMJ .035 180CM 15:21:34 180CM. 15:22:06 The LCA was injected and visualized at various angles. OMNIPAQUE, 350 MG, 150ML 150ML used . Recorded Pressure: Ao, HR=88, Condition=Condition 1 15:22:12 (Aorta) Ao 110/75/90 15:24:15 Catheter was removed A AR MOD INFINITI CATHETER FR 5 was advanced over a wire. OMNIPAQUE, 350 MG, 150ML 150ML was us ed for 15:24:16 injections. 15:24:58 HR=99 bpm, GYUE=026/67 mmhg, Resp=16 B/min 15:25:32 The RCA was injected and visualized at various angles. OMNIPAQUE, 350 MG, 150ML 150ML used . 15::34 Catheter was removed 15:29:06 ACT (Normal Range 90-180) = 148 A SHEATH, FR6.5 PRELUDE 11CM FR 6.5 was exchanged in the Fem Art (right). This was necessary in order to 15::42 accomodate a larger catheter. A XBC 3.5 GUIDE CATHETER FR 6 was advanced over a wire. OMNIPAQUE, 350 MG, 150ML 150ML was used for 15:29:54 injections. 15:29:55 HR=98 bpm, IGDB=369/84 mmhg, Resp=11 B/min 15:29:56 9000 units HEPARIN given in lab by Cindy Bush, DAFNE via Peripheral IV. Ordered by Gerardo Riojas. 25 mcg FENTANYL given in lab by Cindy Bush, RN in Left Antecubital via Peripheral IV. Orde red by Shankar 15:31:34 Gerardo. 15:32:23 A WIRE, BALANCE MIDDLEWEIGHT 190CM 190CM was inserted via Fem Art (right). 15:32:59 Interventional wire has crossed the lesion A BALLOON, 2.0 X 10MM EUPHORA 10MM was inserted over WIRE, BALANCE MIDDLEWEIGHT 190CM 190CM via the 15:33:42 Fem Art (right). 15:34:58 HR=89 bpm, CTWQ=088/82 mmhg, SpO2=95.0 %, Resp=11 B/min A BALLOON, 2.0 X 10MM EUPHORA 10MM over a WIRE, BALANCE MIDDLEWEIGHT 190CM 190CM in the CIRC Mi d was 15:35:13 inflated using a 30 KAITLYN INDEFLATOR at 16 kaitlyn for 15 sec. A BALLOON, 2.0 X 10MM EUPHORA 10MM over a WIRE, BALANCE MIDDLEWEIGHT 190CM 190CM in the CIRC Mi d was 15:35:35 inflated using a 30 KAITLYN INDEFLATOR at 16 kaitlyn for 10 sec. A BALLOON, 2.0 X 10MM EUPHORA 10MM over a WIRE, BALANCE MIDDLEWEIGHT 190CM 190CM in the CIRC Mi d was 15:35:55 inflated using a 30 KAITLYN INDEFLATOR at 16 kaitlyn for 7 sec. 15:36:21 200 mcg NTG (IC) given in lab by Gerardo Chaparro via Intra-coronary. Ordered by Jorge Chaparro. 15:36:39 Activated Clotting Time Drawn A BALLOON, 2.0 X 10MM EUPHORA 10MM over a WIRE, BALANCE MIDDLEWEIGHT 190CM 190CM in the CIRC Mi d was 15:37:58 inflated using a 30 KAITLYN INDEFLATOR at 16 kaitlyn for 8 sec. A BALLOON, 2.0 X 10MM EUPHORA 10MM over a WIRE, BALANCE MIDDLEWEIGHT 190CM 190CM in the CIRC Mi d was 15:38:12 inflated using a 30 KAITLYN INDEFLATOR at 16 kaitlyn for 12 sec. A BALLOON, 2.0 X 10MM EUPHORA 10MM over a WIRE, BALANCE MIDDLEWEIGHT 190CM 190CM in the CIRC Mi d was 15:38:37 inflated using a 30 KAITLYN INDEFLATOR at 16 kaitlyn for 9 sec. A BALLOON, 2.0 X 10MM EUPHORA 10MM over a WIRE, BALANCE MIDDLEWEIGHT 190CM 190CM in the CIRC Mi d was 15:38:54 inflated using a 30 KAITLYN INDEFLATOR at 16 kaitlyn for 8 sec. 15:39:27 Balloon Removed. 15:39:32 200 mcg NTG (IC) given in lab by Gerardo Chaparro via Intra-coronary. Ordered by Jorge Chaparro. 15:39:59 AQ=206 bpm, LMIQ=024/80 mmhg, SpO2=97.0 %, Resp=13 B/min 15:42:02 ACT (Normal Range 90-180) = 290 A STENT, 2.5 38MM ROSE MARIE 2.5 38MM was advanced through a XBC 3.5 GUIDE CATHETER FR 6 over a WIRE, BALANCE 15:43:12 MIDDLEWEIGHT 190CM 190CM. A STENT, 2.5 38MM ROSE MARIE 2.5 38MM was deployed using a 30 KAITLYN INDEFLATOR at 12 atmospheres for 45 seconds in 15:44:23 the CIRC Mid. 15:44:56 YF=606 bpm, TJKM=420/89 mmhg, SpO2=97.0 %, Resp=14 B/min 15:45:43 Delivery device removed 15:47:38 Interventional wire crossed LAD lession 15:49:57 NO=688 bpm, UJMX=104/92 mmhg, SpO2=98.0 %, Resp=16 B/min 15:50:14 2000 units HEPARIN given in lab by Cindy Bush RN via Peripheral IV. Ordered by Gerardo Riojas. A BALLOON, 2.0 X 10MM EUPHORA 10MM was inserted over WIRE, BALANCE MIDDLEWEIGHT 190CM 190CM via the 15:51:13 Fem Art (right). A BALLOON, 2.0 X 10MM EUPHORA 10MM over a WIRE, BALANCE MIDDLEWEIGHT 190CM 190CM in the LAD Mid was 15:51:21 inflated using a 30 KAITLYN INDEFLATOR at 16 kaitlyn for 18 sec. 15:52:23 2 mg VERSED given in lab by Cindy Bush RN via Peripheral IV. Ordered by Sulma Chaparro. 15:52:55 Balloon Removed. A STENT, 2.75 12MM ROSE MARIE 2.75 12MM was advanced through a XBC 3.5 GUIDE CATHETER FR 6 over a WIR E, 15:53:21 BALANCE MIDDLEWEIGHT 190CM 190CM. 15:55:00 HR=93 bpm, XOWQ=451/91 mmhg, Resp=15 B/min A STENT, 2.75 12MM ROSE MARIE 2.75 12MM was deployed using a 30 KAITLYN INDEFLATOR at 12 atmospheres for 45 seconds 15:55:11 in the LAD Mid. 15:55:29 50 mcg FENTANYL given in lab by Cindy Bush, DAFNE via Peripheral IV. Ordered by Gerardo Chaparro. 15:56:47 Delivery device removed 15:57:58 200 mcg NTG (IC) given in lab by Gerardo Chaparro via Intra-coronary. Ordered by Jorge Chaparro. 16:00:05 FP=361 bpm, HZTG=496/74 mmhg, Resp=11 B/min A BALLOON, 2.75 X 8MM NC EUPHORA 8MM was inserted over WIRE, BALANCE MIDDLEWEIGHT 190CM 190CM v ia the 16:00:50 Fem Art (right). Patient arrived on 50 mcg/min NITROGLYCERIN DRIP in Left Antecubital via Peripheral IV. Pump/Dr ip Flow = 15 ml/hr 16:02:53 using D5W with a concentration of 50 mg in 250 ml. Discontinued at 07/27/2018 16:02. A BALLOON, 2.75 X 8MM NC EUPHORA 8MM over a WIRE, BALANCE MIDDLEWEIGHT 190CM 190CM in the LAD M id 16:04:23 was inflated using a 30 KAITLYN INDEFLATOR at 18 kaitlyn for 32 sec. 16:04:54 NM=976 bpm, TJTI=491/106 mmhg, Resp=16 B/min 16:05:39 Balloon Removed. A BALLOON, 2.75 X 8MM NC EUPHORA 8MM was inserted over WIRE, BALANCE MIDDLEWEIGHT 190CM 190CM v ia the 16:07:03 Fem Art (right). A BALLOON, 2.75 X 8MM NC EUPHORA 8MM over a WIRE, BALANCE MIDDLEWEIGHT 190CM 190CM in the LAD M id 16:09:36 was inflated using a 30 KAITLYN INDEFLATOR at 18 kaitlyn for 35 sec. 16:09:59 HR=98 bpm, LKAB=424/101 mmhg, Resp=14 B/min A BALLOON, 2.75 X 8MM NC EUPHORA 8MM over a WIRE, BALANCE MIDDLEWEIGHT 190CM 190CM in the LAD M id 16:10:39 was inflated using a 30 KAITLYN INDEFLATOR at 18 kaitlyn for 10 sec. 16:10:54 Balloon Removed. 16:12:40 Wire removed 16:12:47 Catheter was removed 16:14:03 An injection in the Fem Art (right) was made through the SHEATH, FR6.5 PRELUDE 11CM FR 6.5. 16:15:02 KD=034 bpm, SELX=739/104 mmhg, Resp=14 B/min 16:17:14 Case End (Physician broke scrub) 16:17:42 ANGIOSEAL, FR6 VIP FR 6 placement in the Fem Art (right) 16:18:20 19 mL KENGREAL BOLUS given in lab by Cindy Bush, DAFNE via Peripheral IV. Ordered by Gerardo Ferris. Assessment: Initial Case, MM=604 BPM, IRTV=208/104 mmhg, Chest Pain=2, Edema=None, Color=Normal , Skin = Warm, Dry Right Pulses: Lance Ped=2, Femoral=2 Left Pulses: Lance Ped=2, Femoral=2 16:18:25 Lower Right Extremities: Color=Normal Lower Left Extremities: Color=Normal Neurological: State=Alert, Ox3, NEWBERRY Respiration: Resp=16 B/min, SpO2=95 %, O2=2 lpm 16:18:44 Catheter(s) removed without difficulty 16:18:54 Sterile dressing applied to site 16:18:55 No case complications noted. 16:18:56 Cine recording checked. 16:18:58 Bedside Report will be given. 16:19:01 Implantable Device card placed in patient's chart. 16:19:03 A Left Heart Cath was performed. 16:20:38 180 mg BRILLINTA given in lab by Cindy Bush, RN in Per mouth via Oral. Ordered by Gerardo Garcia. 16:20:51 HR=95 bpm, RQQK=831/78 mmhg, SpO2=98 %, Resp=19 B/min 3.992 mcg/kg/min KENGREAL DRIP given in lab by Cindy Bush, DAFNE via Peripheral IV. Pump/Dri p Flow = 154 ml/hr 16:24:15 using NaCl .9 with a concentration of 50 mg in 250 ml. Ordered by Gerardo Chaparro. 16:24:37 Vitals capture stopped. 16:29:35 Patient moved to [facility] End Study - Contrast Media Used In Study Contrast Total Opened (mL) Total Used (mL) Total Wasted (mL) Omnipaque 260 260 0 End Study - Maximum Contrast Load Max Contrast Load (mL) 643.2 End Study - Radiation Exposure Fluoro Time (minutes) 10.7 End Study - Sheaths Sheaths Pulled By Sheath Hold Time (min) Gerardo Chaparro End Study - Patient Disposition Complications Transferred To Interventional Outcome No Critical Care Bed successful
[2018-07-27] MEDS ORDERED: Misc Info for Pharmacy OTHER STA (16:36)
[2018-07-27] MEDS ORDERED: Iohexol 350 MG/ML 100 ML Vial (for Cath Lab) IVCONTRAST ONE (16:54)
--- NOTE | 2018-07-27 18:07 | MA ---
cc: Gerardo Chaparro MD DATE: 07/27/2018 INDICATION: Non-ST myocardial infarction, class IV angina. PROCEDURE PERFORMED: 1. Retrograde left heart catheterization with left ventriculography and selective coronary angiography. 2. Angioplasty and stenting of the left circumflex artery. 3. Angioplasty and stenting of the mid left anterior descending artery. 4. Moderate sedation. ACCESS SITE: Right femoral artery. EQUIPMENT USED: A 5-German pigtail, 5-German JL4 and AR modified coronary catheters. XB circumflex 3.5 guide, BMW wire, 2.0 x 10 mm balloon for predilatation. A 2.5 x 38 mm [place] stent at 12 atmospheres. A 2.75 x 12 mm [place]iss[place] stent at 12 atmospheres postdilated with 2.75 noncompliant balloon at 16 atmospheres. MEDICATIONS: Versed IV, fentanyl IV, heparin IV, nitroglycerin IC, Brilinta 180 mg p.o., Kengreal IV. CONTRAST: Omnipaque 260 mL COMPLICATIONS: None. ESTIMATED BLOOD LOSS: Less than 10 mL METHOD OF HEMOSTASIS: Angio-Seal closure. RESULTS: HEMODYNAMICS: Heart rate 80 beats per minute, end-diastolic pressure 13 mmHg, left ventricle 112/13 aorta 112/75/90. B. Left ventricular ejection fraction 55%. Normal wall motion. No mitral regurgitation. C. Coronary angiography: Left main coronary artery patent. Left anterior descending artery has 80% stenosis in the mid portion. D1 patent. D2 30% ostial stenosis. Left circumflex artery totally occluded in the mid portion. OM1 has 40% ostial stenosis. OM2 is totally occluded. Right coronary artery is a dominant vessel, which is patent. PLV is patent. PDA has 60% stenosis in the mid portion. Stenosis in the left circumflex artery was 100%. Lesion length was 30 mm. Pre-IMER flow 0, post-IMER flow 3, post-stenosis 0. Stenosis in the LAD 80%, lesion length 8 mm. Pre-IMER flow 3, post-IMER flow 3, post-stenosis 0. Post-intervention angiography revealed excellent patency of the stented segments and no evidence of dissection, thrombosis or a distal embolization. DIAGNOSES: 1. Non-ST elevation myocardial infarction. 2. Severe multivessel coronary disease. 3. Successful stenting of the left circumflex artery and left anterior descending artery. 4. Preserved left ventricular systolic function. DISPOSITION: Mr. Kramer will be monitored on telemetry after his procedure. We will continue therapy with Brilinta for at least 1 year and aspirin indefinitely. We will also continue aggressive modification of his cardiac risk factors. I will see him back for followup in our office after discharge. MD MITCHELL Sanchez/paul , 04:32 PM , 04:40 PM MTDD
--- NOTE | 2018-07-27 21:08 | ECG ---
Date Performed: 07/27/2018 Time Performed: 00:28:58 PTAGE: 53 years EKG: Sinus rhythm Normal ECG PREVIOUS TRACING : 07/26/2018 15.17 Since the previous tracing, no significant change noted DOCTOR: Gerardo Chaparro Interpretating Date/Time 07/27/2018 21:07:17
--- NOTE | 2018-07-27 21:10 | ECG ---
Date Performed: 07/26/2018 Time Performed: 21:25:39 PTAGE: 53 years EKG: Sinus rhythm MINIMAL VOLTAGE CRITERIA FOR LVH, CONSIDER NORMAL VARIANT BORDERLINE ECG NO PREVIOUS TRACING DOCTOR: Gerardo Chaparro Interpretating Date/Time 07/27/2018 21:09:49
--- NOTE | 2018-07-27 21:37 | ECG ---
Date Performed: 07/26/2018 Time Performed: 15:17:15 PTAGE: 53 years EKG: Sinus rhythm NORMAL ECG Since the PREVIOUS TRACING , no significant change noted DOCTOR: Gerardo Chaparro Interpretating Date/Time 07/27/2018 21:36:51
--- NOTE | 2018-07-27 21:48 | ECG ---
Date Performed: 07/26/2018 Time Performed: 14:05:55 PTAGE: 53 years EKG: Sinus rhythm NONSPECIFIC T-WAVE ABNORMALITY BORDERLINE ECG NO PREVIOUS TRACING DOCTOR: Gerardo Chaparro Interpretating Date/Time 07/27/2018 21:48:02
[2018-07-28 08:25] VITALS: BP 123/78; RESP 17; TEMP 97.5; O2SAT 90
[2018-07-28] MEDS: amLODIPine 10 MG Tablet PO SCH (08:28)
[2018-07-28] MEDS: Metoprolol Tartrate 25 MG Tablet PO SCH (08:29)
[2018-07-28] MEDS: Pantoprazole Sodium 20 MG DR Tablet PO SCH (08:33)
[2018-07-28] MEDS ORDERED: Metoprolol Tartrate 25 MG Tablet PO ONE (08:43)
[2018-07-28] MEDS ORDERED: Lisinopril 20 MG Tablet PO SCH (09:00)
--- NOTE | 2018-07-28 09:07 | P.DS ---
Date of admission: 07/27/18 11:31 Primary care physician: UNKNOWN Brief History from admission: 53-year-old male with a history of GERD, hypertension presents to the ER following intermittent recurrent chest pain with radiation to the right shoulder and numbness in his right arm. The episodes began spontaneously last night but the chest pain portion was relieved with Prilosec. Episodes recurred later in the night and again this morning but were not relieved with Prilosec. She feels pain and burning in his xiphoid process with migration involving the chin and bilateral jaws and with pain referred to his right shoulder and numbness down his right arm. He denies having an experience like this before despite having GERD for a number of years. He denies any nausea vomiting or diarrhea he denies any fevers, denies cough. DS: Diagnosis - Discharge Diagnosis (1) Acute non-ST elevation myocardial infarction (NSTEMI) Status: Acute (2) Hypertension Status: Acute DS: Medications - Discharge Medications Prescriptions: aspirin 81 mg PO DAILY #90 tab atorvastatin 80 mg PO HS #90 tab lisinopril 20 mg PO DAILY #90 tab metoprolol tartrate 50 mg PO BID #180 tab ticagrelor [Brilinta] 90 mg PO BID #180 tab DS: Summary Hospital Course: Mr. Kramer is a 53-year-old male with a history of GERD, hypertension presented to the ER on 07/26/2018 following intermittent recurrent chest pain with radiation to the right shoulder and numbness in his right arm. Troponins gradually increased from 0.14 on admission to 3.07 in the morning on 07/27/2018. Patient underwent cardiac cath on 07/27/2018 and sex therapist placed two stents to left circumflex and LAD. Patient was started on Brilinta and aspirin as well as beta anastasiia, high dose statin. Amlodipine was stopped and JANELL inhibitor was cut down to 20mg due to well controlled BP. Patient was advised not to do any heavy lifting for 1 week. Patient was also advised to follow-up with his PCP in [place] and obtain cardiology follow-up within 2-3 weeks. Patient verbalized understanding. I discussed with the sex therapist prior to discharging patient. Cardiology cleared for discharge. - Time Spent with Patient Total time spent providing and/or coordinating discharge services: Greater than 30 minutes - Quality: VTE Deep Vein Thrombosis/Pulmonary Embolism Present on Admission: No Exam Vital signs: Vital Signs 07/27/18 10:00 07/27/18 11:00 07/27/18 12:00 Temperature 98.3 F Pulse Rate 80 82 78 Respiratory Rate 18 Blood Pressure 138/82 Pulse Oximetry 96 07/27/18 13:00 07/27/18 16:30 07/27/18 17:00 Temperature Pulse Rate 80 77 80 Respiratory Rate 20 Blood Pressure 148/83 H Pulse Oximetry 98 07/27/18 18:00 07/27/18 18:03 07/27/18 19:00 Temperature Pulse Rate 78 81 Respiratory Rate Blood Pressure Pulse Oximetry 96 07/27/18 20:00 07/27/18 21:00 07/27/18 22:00 Temperature 99.3 F Pulse Rate 98 H 105 H 109 H Respiratory Rate 20 Blood Pressure 154/86 H Pulse Oximetry 97 07/27/18 23:00 07/28/18 00:00 07/28/18 01:00 Temperature 98 F Pulse Rate 103 H 88 90 Respiratory Rate 18 Blood Pressure 122/82 Pulse Oximetry 100 07/28/18 02:00 07/28/18 03:00 07/28/18 04:00 Temperature 97.6 F Pulse Rate 82 87 73 Respiratory Rate 18 Blood Pressure 118/78 Pulse Oximetry 100 07/28/18 05:00 07/28/18 05:45 07/28/18 07:00 Temperature Pulse Rate 81 82 76 Respiratory Rate Blood Pressure Pulse Oximetry 07/28/18 08:21 07/28/18 08:23 Temperature 97.5 F L Pulse Rate 94 H Respiratory Rate 17 Blood Pressure 123/78 Pulse Oximetry 99 90 L Intake & Output 07/27/18 07/28/18 07/28/18 18:59 06:59 18:59 Intake Total 2670 / 2670 720 / 720 Output Total 1300 / 1300 1500 / 1500 Balance 1370 / 1370 -780 / -780 Weight 128.5 kg Intake: IV 510 / 510 Heparin/NS PF Inj 1,500 ML @ 0 10 / 10 mls/hr .ROUTE .STK-MED ONE Rx#: [id number] Heparin/D5W 25,000 U/250 mL 25, 250 / 250 000 unit In 250 ml @ Per Protocol 10 mls/hr IV.CONT TITRATE PRN Rx#:[id number] Nitroglycerin Drip Premix 50 mg 250 / 250 In 250 ml @ Per Protocol IV. CONT TITRATE PRN Rx#:[id number] Oral 410 / 410 720 / 720 Anesthesia Amount 1750 / 1750 Output: Urine 1300 / 1300 1500 / 1500 Other: Date of Last Bowel Movement 07/25/18 07/25/18 Results Procedures completed during hospitalization: Cardiac cath 07/27/2018 RESULTS: HEMODYNAMICS: Heart rate 80 beats per minute, end-diastolic pressure 13 mmHg, left ventricle 112/13 aorta 112/75/90. B. Left ventricular ejection fraction 55%. Normal wall motion. No mitral regurgitation. C. Coronary angiography: Left main coronary artery patent. Left anterior descending artery has 80% stenosis in the mid portion. D1 patent. D2 30% ostial stenosis. Left circumflex artery totally occluded in the mid portion. OM1 has 40% ostial stenosis. OM2 is totally occluded. Right coronary artery is a dominant vessel, which is patent. PLV is patent. PDA has 60% stenosis in the mid portion. Stenosis in the left circumflex artery was 100%. Lesion length was 30 mm. Pre-IMER flow 0, post-IMER flow 3, post-stenosis 0. Stenosis in the LAD 80%, lesion length 8 mm. Pre-IMER flow 3, post-IMER flow 3, post-stenosis 0. Post-intervention angiography revealed excellent patency of the stented segments and no evidence of dissection, thrombosis or a distal embolization. DIAGNOSES: 1. Non-ST elevation myocardial infarction. 2. Severe multivessel coronary disease. 3. Successful stenting of the left circumflex artery and left anterior descending artery. 4. Preserved left ventricular systolic function. Labs on day of discharge: Labs from last 24 hours 07/27/18 07/27/18 14:03 09:15 PT 10.8 INR 1.1 APTT 29.9 D 41.7 H D - Impressions ITS Impressions Chest X-Ray 07/26/18 14:20 CONCLUSION: No acute cardiopulmonary disease. Discharge Plan - Discharge Disposition Patient Disposition: 01 Discharge Home - Discharge Condition Condition: Serious - Discharge Order Discharge Orders: Discharge Order (Routine); Ordered 07/28/18 Ordered By: Carlos Venegas - Discharge Details Anticipated Discharge Date: 07/28/18 - Physicians Team Primary Care Provider: UNKNOWN, Attending Provider: Carlos Venegas Other Providers: Elvin Arriaga DO
[2018-07-28 09:17] VITALS: PULSE 98
--- NOTE | 2018-07-28 09:44 | P.PNCA ---
Subjective Interval history: Patient sitting up in bed with no complaints of chest pain, palpitations, pressure, dizziness, edema or shortness of breath. Patient states he feels much better. Physical Exam Vital signs: Vital Signs 07/27/18 10:00 07/27/18 11:00 07/27/18 12:00 Temperature 98.3 F Pulse Rate 80 82 78 Respiratory Rate 18 Blood Pressure 138/82 Pulse Oximetry 96 07/27/18 13:00 07/27/18 16:30 07/27/18 17:00 Temperature Pulse Rate 80 77 80 Respiratory Rate 20 Blood Pressure 148/83 H Pulse Oximetry 98 07/27/18 18:00 07/27/18 18:03 07/27/18 19:00 Temperature Pulse Rate 78 81 Respiratory Rate Blood Pressure Pulse Oximetry 96 07/27/18 20:00 07/27/18 21:00 07/27/18 22:00 Temperature 99.3 F Pulse Rate 98 H 105 H 109 H Respiratory Rate 20 Blood Pressure 154/86 H Pulse Oximetry 97 07/27/18 23:00 07/28/18 00:00 07/28/18 01:00 Temperature 98 F Pulse Rate 103 H 88 90 Respiratory Rate 18 Blood Pressure 122/82 Pulse Oximetry 100 07/28/18 02:00 07/28/18 03:00 07/28/18 04:00 Temperature 97.6 F Pulse Rate 82 87 73 Respiratory Rate 18 Blood Pressure 118/78 Pulse Oximetry 100 07/28/18 05:00 07/28/18 05:45 07/28/18 07:00 Temperature Pulse Rate 81 82 76 Respiratory Rate Blood Pressure Pulse Oximetry 07/28/18 08:00 07/28/18 08:21 07/28/18 08:23 Temperature 97.5 F L Pulse Rate 88 94 H Respiratory Rate 17 Blood Pressure 123/78 Pulse Oximetry 99 90 L 07/28/18 09:00 Temperature Pulse Rate 98 H Respiratory Rate Blood Pressure Pulse Oximetry Intake & Output 07/27/18 07/28/18 07/28/18 18:59 06:59 18:59 Intake Total 2670 / 2670 720 / 720 240 / 240 Output Total 1300 / 1300 1500 / 1500 350 / 350 Balance 1370 / 1370 -780 / -780 -110 / -110 Weight 128.5 kg Intake: IV 510 / 510 Heparin/NS PF Inj 1,500 ML @ 0 10 / 10 mls/hr .ROUTE .STK-MED ONE Rx#: [id number] Heparin/D5W 25,000 U/250 mL 25, 250 / 250 000 unit In 250 ml @ Per Protocol 10 mls/hr IV.CONT TITRATE PRN Rx#:[id number] Nitroglycerin Drip Premix 50 mg 250 / 250 In 250 ml @ Per Protocol IV. CONT TITRATE PRN Rx#:[id number] Oral 410 / 410 720 / 720 240 / 240 Anesthesia Amount 1750 / 1750 Output: Urine 1300 / 1300 1500 / 1500 350 / 350 Other: Date of Last Bowel Movement 07/25/18 07/25/18 - Constitutional no acute distress - Routine HEENT Exam Head: Present: normocephalic Eye: Present: PERRL ENT: Present: mucous membranes moist - Routine Neck Exam Present: full ROM - Routine Respiratory Exam Present: CTA bilaterally - Routine Cardiovascular Exam Present: S1, S2. Absent: murmur, gallop, rubs - Routine Abdominal Exam Present: normoactive bowel sounds - Routine Extremities Exam Present: full ROM, pulses intact, normal capillary refill. Absent: cyanosis, clubbing, edema - Routine Skin Exam Present: intact - Routine Neurological Exam Present: oriented X3 - Detailed Neurological Exam: Coma Scale Eye Opening: Spontaneous Verbal Response: Oriented Motor Response: Obey commands Tamara Coma Scale Total: 15 - Routine Psychiatric Exam Present: normal affect - Additional findings Additional findings: Right groin is stable with no signs of bleeding or hematoma. Assessment and Plan - Assessment (1) Morbid obesity Code(s): E66.01 - Morbid (severe) obesity due to excess calories Status: Acute (2) Hypertension Code(s): I10 - Essential (primary) hypertension Status: Acute - Plan Patient had cardiac cath yesterday with angioplasty and [place] stents placed to the left circumflex and the mid LAD. Right groin is dry and intact, no signs of bleeding or hematoma. [place] and [place] home after hospitalization. Patient instructed to follow-up with a deputy program manager within the next 2-3 weeks. Patient will be placed on Brilinta, metoprolol will be increased to 50 mg, amlodipine will be DC'd and lisinopril started. Due to the amount of stenosis, patient's atorvastatin was increased to 80 mg. Activity restrictions and lifestyle modifications were discussed with patient. Patient cleared to be discharged home today from cardiac standpoint. Patient was seen and evaluated by Dr. Chaparro who participated in care, management and decision-making. - Attending Attestation Patient seen and examined. I reviewed and agree with the evaluation and plan as presented. 2 vessel PCI yest with a good result. LV fx preserved. DC home. Continue Brilinta and baby ASA for at least 1 year. F/u with a deputy program manager in [place].
== END 2018-07-28 10:19 | disposition home or self-care (01) ==
LOC: NEPC 13:44 → INTOOBSV 18:11 → NEDA 18:11 → HCIS 21:32
PROVIDERS: ADMIT Hospitalist; ATTEND Hospitalist